=== PATIENT | male | born 1940 | race Caucasian/White ===

== ENCOUNTER 2024-02-01 06:17 | Day surgery (SDC) | payer MEDICARE, SELFPAY ==
[2024-01-17 09:06] VITALS: BMI 25.6
[2024-02-01] VITALS (9 sets, daily range): BP systolic 107–136; BP diastolic 54–77; PULSE 72–86; RESP 12–18; TEMP 36.1–36.6; O2SAT 93–98; BMI 25.4
--- NOTE | 2024-02-01 06:00 | DI.RAD.S_ITS ---
PROCEDURE: XR KNEE RT 1TO2V INDICATIONS: TOTAL RIGHT KNEE TECHNIQUE: 2 view(s) of the knee acquired. COMPARISON: None. FINDINGS: Bones: Patient is status post knee joint arthroplasty. Hardware components are in expected positions. Visualized bony structures are intact. Soft tissues: Overlying postoperative changes are noted. IMPRESSION: Expected postoperative appearance of the knee arthroplasty. Dictated by: Sav Jaimes M.D. on 02/01/2024 at 15:15 Approved by: Sav Jaimes M.D. on 02/01/2024 at 15:20
[2024-02-01] MEDS: LACTATED RINGERS 1,000 ML 42 ML IV ×2 (06:58→09:56)
[2024-02-01] MEDS: ACETAMINOPHEN 325 MG TABLET 975 MG PO (06:58)
[2024-02-01] MEDS: MELOXICAM 7.5 MG TABLET 15 MG PO (06:59)
[2024-02-01] MEDS: lamoTRIgine 100 MG TABLET 350 MG PO ×2 (06:59→20:49)
--- NOTE | 2024-02-01 07:58 | PM.PREOP ---
Pre-operative Note Interval Note History & Physical reviewed/Exam performed by Physician: Yes Changes to H&P: No
[2024-02-01] MEDS: CEFAZOLIN 2 GM/100 ML PREMIX 100 ML IV ×2 (08:00→18:49)
[2024-02-01] MEDS: TRANEXAMIC ACID 1,000 MG VIAL 2000 MG INJ ×2 (08:10→10:09)
--- NOTE | 2024-02-01 08:40 | SUR.OPER ---
Supine on padded OR bed. Pillow under head, arms secured on padded armboards <90 degree abduction. Safety belt across torso. Non-operative leg secured with tape over blanket over lower leg. Operative leg secured in Tomasz positioner. Foam padded brace at thigh of operative leg.
[2024-02-01] MEDS: ROPIVACAINE/EPI/CLONIDINE/KET 50 ML SYRINGE INJ (08:47)
[2024-02-01] MEDS: CEFAZOLIN VIAL 2 GM in SODIUM CHLORIDE 0.9% 100 ML IV (10:20)
--- NOTE | 2024-02-01 11:20 | P.OP_ITS ---
Operative Date/Time/Diagnoses Date of procedure: 02/01/24 Pre-op diagnosis: Right knee osteoarthritis Post-op diagnosis: same Procedure & Clinicians Procedure: Cemented right total knee arthroplasty Same procedure as scheduled: Yes Surgeon: Meek Witt Conference Translator: Holly Jj Anesthesia Type: Spinal, Sedation, Peripheral nerve block and Local Operative Notes Estimated Blood Loss (mL): 200 Tourniquet time (min): 63 Procedure in detail: Right Gap-Balanced Chris Persona Medial-Congruent Primary Total Knee Arthroplasty Implants: * Size 12 Cruciate Retaining Femoral Component * Size H Tibial Component with 14 mm x 30 mm stem extension * Size 10 Medial Congruent Polyethylene Insert * Unresurfaced Patella Procedure Summary: This 83-year-old male patient had a valgus knee which balanced in extension without the need for a posterolateral release. His bone quality was very poor with significant osteoporosis throughout all bony structures. Because of his significant osteoporosis I used a stem extension on the tibial side. He lacked approximately 5? of terminal extension at the beginning of the procedure so I used a +2 cut on the femur. At the conclusion of the procedure balanced was appropriate in both flexion and extension with full extension passively and the ability to flex the knee far enough for the heel impact the buttock. Today's surgery was significantly extended because of implant availability. After having made all of the saw cuts for the patient's total knee arthroplasty I was informed that there was no size 12 femoral component at our hospital. I was not aware of this until I was ready to cement the components in place. There was a size 12 femur at a nearby hospital and it was transported to our hospital all those this resulted in a significant lengthening of the duration of the surgery. When this occurred I brought down the tourniquet temporarily, soaked the wound in a dilute mixture of Betadine and peroxide, and identified any bleeding vessels in the arthrotomy in order to limit blood loss. I also reduced his Ancef prior to wound closure given the increased duration of the procedure. Procedure in Detail: This patient was seen preoperatively and evaluated for knee pain which was refractory to numerous nonoperative treatment modalities. Their pain correlated with radiographic changes demonstrating significant degeneration in the knee joint. The risks and benefits of continued nonoperative management versus operative management were discussed at length and all of the patient?s questions were answered. Additional educational materials providing further details beyond our discussion in clinic were provided via a publicly available patient education video which included the incidence of medical complications associated with total knee arthroplasty, reasons for revision following total knee arthroplasty, and patient satisfaction rates following total knee arthroplasty. That video can be accessed at [email or web address] . With this understanding of the risks inherent to the procedure, the patient elected to move forward with operative management. Following preoperative optimization, the patient was scheduled for surgery. The patient was met in the preoperative holding area the day of the procedure and all questions were answered. The patient?s nares were swabbed with betadine in order to decolonize them from MRSA. Informed consent was signed and the right limb was marked with indelible ink.? The patient was brought back to the operating room where anesthesia was induced. The patient was transferred to the operating table and all bony prominences were padded. The operative site was prepped and draped in the usual sterile fashion. A second prep stick was utilized following drape placement. The incision was marked corresponding to the medial aspect of the tibial tubercle and the patella. Ioban was wrapped circumferentially around the knee. Prior to incision, tranexamic acid and cefazolin were administered. Templating images were displayed. A timeout procedure was performed verifying the patient?s identity, medical comorbidities, allergies, relevant medications, anesthesia type and the surgical plan. All present were in agreement. The assistance of a physician library services assistant was required for positioning, room setup, soft tissue retraction and wound closure. Without this assistance, the procedure would have been significantly more challenging and time consuming.?? The tourniquet was inflated prior to incision. I made an anterior incision over the knee, dissected through the subcutaneous tissues and identified the lateral border of the VMO. Medial and lateral soft tissue flaps were developed. A medial parapatellar arthrotomy was performed ensuring that adequate capsular tissue would remain for closure at the conclusion of the procedure. The hip was brought into extension and the medial soft tissues were released off the joint line of the tibia. Tissue overlying the distal anterior femur was released to allow for later assessment for anterior notching but left in place. A portion of the retropatellar fat pad was excised while protecting the patellar tendon. The patella was everted. The patella was not resurfaced. Osteophytes were excised and a lateral facetectomy was performed. The patella was released from its everted position.?? I flexed the knee to 90 degrees and placed retractors to allow access to the notch. An opening reamer was used to gain access to the femoral canal and an intramedullary claudia was introduced into the canal. Diaphyseal fit was obtained in order to allow a distal femoral resection at 5 degrees relative to the anatomic axis, thereby aiming to achieve mechanical alignment of the eventual implant. A +2 resection was planned and assessed using an paola wing. I then made the cut using a sagittal saw. This provided additional access to the femoral notch. The ACL and PCL were excised. Retractors were placed on the lateral and medial tibia. I hyperflexed the knee while externally rotating it to sublux the tibia anteriorly. I placed a PCL retractor posteriorly and used this to provide additional anterior subluxation. The remainder of the PCL root was released. An intramedullary reamer was used in the ACL footprint to provide access to the tibial canal. An extramedullary guide was positioned to allow a resection perpendicular to the anatomic and mechanical axes of the tibia, thereby aiming to achieve mechanical alignment of the eventual implant. A +4 resection off the medial tibia was planned because there was so much bone loss on the lateral side and the tibial cutting jig was pinned in place. I evaluated the cut depth, varus-valgus alignment and slope of the planned tibial resection and deemed them satisfactory. I cut the tibia with a sagittal saw while using retractors to protect the MCL, patellar tendon, and posterolateral structures.? The knee was repositioned in extension and the Fuzion soft tissue balancing gauge was introduced. This demonstrated that there was equal tension in the medial and lateral compartments of the knee with the knee in full extension and no additional soft tissue releases were necessary. When 60 pounds of force was applied to the Fuzion device, the extension gap opened to 10 mm. I moved the knee into 90 degrees of flexion, and the Fuzion device was recalibrated by removing a 9 mm cruz to allow assessment of the flexion gap. The Fuzion was placed perpendicular to the resected surface of the tibia and the resected surface of the distal femur. Sixty pounds of traction was applied to match the tension of the extension gap. This externally rotated the femur to 7 degrees. Pins were placed in the 10 mm holes. The measured resection guide was placed over the pins to allow sizing. Appropriate sizing was determined and a 4-in-1 block was placed. This was double checked using the Fuzion device to ensure that it would open to an equal distance as the extension gap when the same amount of force was applied. The Fuzion block was also used to assess flexion gap symmetry. An paola wing was used to ensure there would be no anterior notching. Retractors were placed to protect the soft tissues during resection. Captured cuts were performed with a sagittal saw for the anterior and posterior femur as well as the corresponding chamfers.? Trial components were placed and the construct was assessed. Range of motion was assessed by ensuring the knee could achieve full extension and assessing maximum passive knee flexion by elevating the femur and allowing the heel to passively fall towards the buttock. Gap symmetry was assessed by stressing the medial and lateral compartments in both extension and flexion. Laxity was assessed in both extension and flexion and the polyethylene trial was adjusted with shims as necessary. Patellar tracking was assessed with knee flexion. Once satisfied with the construct, I moved forward with implant insertion. Lug holes were drilled in the femur and the tibia was prepped ensuring appropriate sizing and rotation relative to the tibial tubercle.?? The bony ends were irrigated and cement was prepared. Portions of the anterior chamfer cut were utilized as cement restrictors in the femur and tibia where intramedullar rods had been utilized. Cement was placed on the entirety of the undersurface of both the tibial and femoral components. Cement was placed onto the dry tibia and pressurized into the cancellous bone. I impacted the tibial component into place. Cement was removed. The tibia was reduced underneath the femur and placed cement onto the dry surface of the resected femur. I placed the femoral component as well as the intended polyethylene trial. Cement was removed from around the femur. I brought the knee into extension and manually pressurized the construct by pushing on the heel while the cement dried. The kn ee was bathed in a dilute mixture of betadine and peroxide. A mixture of Ropivacaine, Epinephrine, Clonidine and Toradol was infiltrated throughout the soft tissues into structures including the VMO, patellar tendon, quadriceps tendon, MCL and femoral periosteum. A low adductor canal block was also performed using this mixture unless one had been placed preoperatively by anesthesia. The knee was copiously irrigated with pulse lavage. Once cement had been allowed to dry the knee was again trialed. Range of motion was assessed by ensuring the knee could achieve full extension and assessing maximum passive knee flexion by elevating the femur and allowing the heel to passively fall towards the buttock. Gap symmetry was assessed by stressing the medial and lateral compartments in both extension and flexion. Laxity was assessed in both extension and flexion and the polyethylene trial was adjusted with shims as necessary. Patellar tracking was assessed with knee flexion. The tourniquet was let down and the polyethylene trial was removed. I inspected the knee inspected for excess cement and any residual bleeding. Once hemostasis was achieved I inserted the final polyethylene and ensured appropriate engagement of the dovetail locking mechanism.?? The arthrotomy was closed with absorbable interrupted suture ensuring that this extended to the top of the arthrotomy. This was backed up with running barbed suture throughout the arthrotomy. The skin was closed with 2-0 and 3-0 sutures. Surgical glue was applied and a soft dressing was placed.?The sponge, instrument and needle counts were reported as being correct at the end of the case.??No obvious complications occurred. The patient was transferred from the operating table back to a stretcher. The patient emerged from anesthesia without difficulty and was taken to the PACU in a stable condition.? Plan for aftercare: * Weightbearing as tolerated * Aspirin 81 twice per day for DVT prophylaxis * Multimodal pain regimen with no IV opioids ordered * Patient has significant mobility deficits because of a prior thalamic stroke resulting in balanced deficits, vertigo, polio which he recovered from in childhood with some residual weakness, a prior left total knee arthroplasty which was complicated by a patella fracture with some extensor mechanism dysfunction residually, and shoulder strength deficits which make it challenging for him to use a walker. Additionally his has significant back issues which makes it hard for her to support him while ambulating. Because of this they are hoping to be able to move in the direction of discharge to a rehab facility. In the past they have gone to [facility] in [place] and would like to return there if that is logistically possible * Obstructive sleep apnea will use CPAP during admission * Urinary retention which has been exacerbated by anesthetics and opioids in the past. We will restart his dutasteride and tamsulosin immediately in the PACU today and maintain those medications throughout his admission * Follow up at [facility] in 2 weeks * Detailed postoperative instructions available at [email or web address]
[2024-02-01] MEDS: LACTATED RINGERS 1,000 ML 100 ML IV (12:04)
[2024-02-01] MEDS: IBUPROFEN 600 MG TABLET PO ×3 (12:04→22:22)
[2024-02-01] MEDS: ACETAMINOPHEN 325 MG TABLET 650 MG PO ×3 (12:04→22:23)
--- NOTE | 2024-02-01 14:40 | PT.IIE ---
Current Diagnoses Unilateral primary osteoarthritis, right knee (02/01/24) Surgery Performed Operation Date: 02/01/24 07:45 Actual Procedures p Total Knee Arthroplasty(Right) - Meek Witt MD Surgical History (Last Reviewed 02/01/24 @ 06:48 by Debora Marcos, RN) History of total left knee replacement (01/2023) Medical History (Last Reviewed 02/01/24 @ 06:48 by Debora Marcos, RN) Aortic stenosis BPH (benign prostatic hyperplasia) CVA (cerebral vascular accident) (08/19/18) Epilepsy Hearing deficit HTN (hypertension) IBS (irritable bowel syndrome) CROW on CPAP Osteoarthritis PFO (patent foramen ovale) Pre-diabetes Psoriasis RLS (restless legs syndrome) Skin cancer Small bowel obstruction Physical Therapy Inpatient Evaluation/Re-Eval M1 PT/OT-IP Prior Functional Status Start: 02/01/24 16:14 Freq: NEEDED Status: Active Protocol: Document 02/01/24 14:40 AB (Rec: 02/01/24 16:30 AB [id number]) Medical Review Prior Functional Status Medical History Reviewed Yes Communication able to make needs known Mobility and Gait pt stated that he was modified independent with all mobilities and ambulation using a SPC Prior Functional Level (Other details) pt and spouse stated that he had a h/o L TKA but with patellar fx last may 2024 . pt and spouse plans on pt to go to a rehab Social History Household Members spouse Living Arrangements House Number of Floors (Floors) One Floor Number of Stairs To Enter/Railing? ramp to enter Home Environment Standard Height Toilet,Walk in Shower,Built-In Shower Seat Home Equipment Front Wheel Walker,Straight Cane,Raised Toilet Seat Without Armrests,Shower Seat with Backrest,Hand Held Shower ,Grab Bars Near Toilet,Grab Bars In Shower Additional Social History Comment pt has a toilet safety frame pt's spouse stated that she has back issues with radicular pain from assisting pt before and will be limited to the assistance she is going to be able to provide M2 PT-IP Current Condition Start: 02/01/24 16:14 Freq: NEEDED Status: Active Protocol: Document 02/01/24 14:40 AB (Rec: 02/01/24 16:30 AB [id number]) Physical Therapy Current Condition Current Condition Evaluation Date 02/01/24 Treatment Diagnosis s/p R TKA; difficulty in walking Onset Date 02/01/24 M3 PT-IP Subjective Start: 02/01/24 16:14 Freq: NEEDED Status: Active Protocol: Document 02/01/24 14:40 AB (Rec: 02/01/24 16:30 AB [id number]) Subjective Physical Therapy Visit Type Type Initial Evaluation Visit Start Time 14:40 Visit Stop Time 15:45 Number of LOAN CLERK Visits 0 Physical Therapy Visit Comments Patient Comments agreeable to do PT Therapy Pain Assessment Pain When Pain Assessed At Rest Pain Present Pain Present Pain Reported Location Right Knee Intensity 5 Scale Used Numeric (0 - 10) Pain Behaviors Guarding Pain Management Techniques Apply Cold,Distraction, Modification of Treatment,Re- positioning,Timing of Activity with Medications M4 PT-IP Mobility and Gait Start: 02/01/24 16:14 Freq: NEEDED Status: Active Protocol: Document 02/01/24 14:40 AB (Rec: 02/01/24 16:30 AB [id number]) PT-Bed Mobility Assessment Supine to Sit Supine to Sit Standby Assistance PT-Transfer Assessment Sit to and From Stand Sit to and from Stand Maximum Assistance,1 Person Assistance,Use of Upper Extremities Equipment Transfer Assistive Device Gait Belt,Front Wheeled Walker Orthotic/Prosthetic Devices or Brace: No Comments Mobility Comments pt supine in bed. spouse in room. pt agreed to do PT. obtained pLOF and home set up from pt and spouse. BP in supine: 122/63. completed supine to sit SBA. able to sit on EOB SBA. c/o slight dizziness. BP: 123/68. completed sit to stand max A and max cues. ambulated in room ~ 35 ft using FWW min A and cues. pt can be impulsive. cued to slow down and for LE quads activation. pt wants to go back in bed. sat on EOB and completed sit to supinen SBA. positioned pt in bed. BP: 126/68. post -op folder provided and reviewed with pt. educated pt on HEP. call light and table placed within reach. spouse expressed concerns about pt going home. spouse stated that pt was only able to stand ~ 10-15 sec before and that she wants pt to be able to walk farther before he can go home since she injured herself while assisting pt before. Gait Assessment Gait Gait Assistance Required: Minimum Assistance,1 Person Assist Distance (Feet) 30 Assistive Devices Assistive Device Gait Belt,Front Wheeled Walker Orthotic/Prosthetic Devices or Brace: No Gait Deviations General Gait Pattern Decreased Stride Length, Decreased Feet Clearance, Flexed Trunk Factors Limiting Gait Function Factors Limiting Gait Function Decreased Activity Tolerance, Decreased Sensation,Difficulty Following Directions,Limited Range of Motion,Pain,Poor Balance,Poor Safety Awareness PT-Balance Assessment Sitting Balance and Reactions Static Sitting Balance Ability Normal Dynamic Sitting Balance Ability Good Standing Balance and Reactions Static Standing Balance Ability Fair Dynamic Standing Balance Ability Fair Device Used FWW M5 PT-IP Objective Assessments Start: 02/01/24 16:14 Freq: NEEDED Status: Active Protocol: Document 02/01/24 14:40 AB (Rec: 02/01/24 16:30 AB [id number]) Orientation Orientation/Cognition Level of Alertness Alert Orientation Name,Place,Situation Language Function Ability Hard of Hearing Safety Awareness Decreased Safety Awareness Memory Description No Deficits Noted Gross Range of Motion Lower Extremity ROM Assessment Right Impaired Impairments R knee flexion: ~ 70 deg R knee extension: ~ 10 deg less to 0 Strength Lower Extremity Strength Assessment Right Impaired Hip 4-/5 Knee 3+/5 Sensation Assessment Sensation Sensation Description Numbness Comments Sensation Comments 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 Muscle Tone Muscle Tone WNL Yes M6 PT-IP Treatment Start: 02/01/24 16:14 Freq: NEEDED Status: Active Protocol: Document 02/01/24 14:40 AB (Rec: 02/01/24 16:30 AB [id number]) Physical Therapy Treatment Exercises Exercises Heel Slides Education Education Provided Precautions,Weight Bearing Status,Post-Op Packet,Safety M7 PT-IP Assessment and Plan Start: 02/01/24 16:14 Freq: NEEDED Status: Active Protocol: Document 02/01/24 14:40 AB (Rec: 02/01/24 16:30 AB [id number]) PT Summary Assessment and Plan Potential Rehabilitation Potential Fair Status of Condition at Evaluation Stable Summary Impairments Pain,ROM,Strength,Balance, Coordination,Sensation,Tone, Cognition,Bed Mobility, Transfers,Gait,Activity Tolerance Assessment Summary pt is arianna 83 y/o M s/p R TKA POD 0. pt is WBAT on RLE. pt with h/o L TKA with patellar fx, thalamic stroke, BPPV affecting current mobility assistance. pt lives with spouse but spouse will be limited to the assistance she can provide due to her medical issues. pt plans to go to acute rehab to improve overall strength and function. will continue to assess. Goals Bed Mobility Goal Independent Transfer Goal Independent,Front Wheeled Walker Gait Goal Independent,Front Wheel Walker Gait Distance 200 Other Goals improve transfers, ambulation using LRAD 300 ft mod I Days to Meet Goals 5 Frequency of Treatment Frequency Of Treatment Twice a Day Treatment Plan Physical Therapy Treatment Plan Bed Mobility Training,Transfer Training,Gait Training, Therapeutic Exercise,Balance Retraining,Post Op Education, Discharge Planning,Hot or Cold Pack,Neuromuscular Re-ed, Coordination Retraining,Manual Therapy Weight Bearing Status Weight Bearing Status Weight Bear as Tolerated Allowed Weight Bearing Amount (enter % RLE WBAT or #) (%) Recommendations To Nursing Amount of Assist Needed 1 Person Assist Discharge Recommendations PT Discharge Recommendations Home with Assistance,Home Health,Acute Rehab Transportation Needs at Discharge Private Vehicle,Wheelchair/ Cabulance
[2024-02-01] MEDS: OXYCODONE IR 5 MG TABLET PO (15:13)
--- NOTE | 2024-02-01 17:45 | OT.IP.EVAL ---
Current Diagnoses Unilateral primary osteoarthritis, right knee (02/01/24) Surgery Performed Operation Date: 02/01/24 07:45 Actual Procedures p Total Knee Arthroplasty(Right) - Meek Witt MD Past Medical History (Last Reviewed 02/01/24 @ 06:48 by Debora Marcos, RN) Aortic stenosis BPH (benign prostatic hyperplasia) CVA (cerebral vascular accident) (08/19/18) Epilepsy Hearing deficit HTN (hypertension) IBS (irritable bowel syndrome) CROW on CPAP Osteoarthritis PFO (patent foramen ovale) Pre-diabetes Psoriasis RLS (restless legs syndrome) Skin cancer Small bowel obstruction Surgical History (Last Reviewed 02/01/24 @ 06:48 by Debora Marcos, STEPHANIE) 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 Prior Functional Level (Other details) pt and spouse stated that he had a h/o L TKA but with patellar fx last January 2023, per medical chart pt and spouse plans on pt to go to a rehab Social History Household Members spouse Living Arrangements House Number of Floors (Floors) One Floor Number of Stairs To Enter/Railing? ramp to enter Home Environment Standard Height Toilet,Walk in Shower,Built-In Shower Seat Home Equipment Front Wheel Walker,Straight Cane,Raised Toilet Seat Without Armrests,Shower Seat with Backrest,Hand Held Shower ,Long Handled Shoe Horn, Cleaning And Maintenance Worker,Sock Aid,Grab Bars Near Toilet,Grab Bars In Shower Additional Social History Comment pt has a toilet safety frame pt's spouse stated that she has back issues with radicular pain from assisting pt before and will be limited to the assistance she is going to be able to provide M2 OT-IP Current Condition Start: 02/01/24 17:12 Freq: Status: Active Protocol: Document 02/01/24 17:14 [facility] (Rec: 02/01/24 17:41 [facility] [id number]) Occupational Therapy Current Condition Current Condition Evaluation Date 02/01/24 Treatment Diagnosis S/P R TKA Diagnosis Onset Date 02/01/24 M3 OT- IP Subjective and Pain Start: 02/01/24 17:12 Freq: Status: Active Protocol: Document 02/01/24 17:14 [facility] (Rec: 02/01/24 17:41 [facility] [id number]) OT- Subjective Occupational Therapy Visit Type Type Initial Evaluation Visit Start Time 16:50 Visit Stop Time 17:24 Occupational Therapy Visit Comments Patient Comments Pt agreed to get up for OT eval. Patient/Caregiver Goals To go to acute rehab. OT Pain Assessment Pain When Pain Assessed During Mobility Pain Present Pain Present Pain Reported M4 OT- IP ADL's Start: 02/01/24 17:12 Freq: Status: Active Protocol: Document 02/01/24 17:14 [facility] (Rec: 02/01/24 17:41 [facility] [id number]) OT [id number] Comments OT Self-Feeding Comments NOt at meal time. OT ADL-Grooming General Evaluation Grooming Ability Standby Assistance Comments OT Grooming Comments Set-up while seated. OT ADL-Oral Care General Eval Oral Care Ability Independent Comments Oral Care Comments While seated. OT ADL-Dressing General Eval Lower Body Dressing Ability Maximum Assistance Areas Needing Assistance Socks OT ADL-Toileting Comments OT Toileting Comments Pt not needing to go. Pt states the toilet is 20ft away from the bed. OT ADL-Bathing Comments OT Bathing Comments Not performed. M5 OT- IP IADL's Start: 02/01/24 17:12 Freq: Status: Active Protocol: Document 02/01/24 17:14 [facility] (Rec: 02/01/24 17:41 [facility] [id number]) OT-Instrumental Activities of Daily Living Home Safety Awareness Awareness of Need for Assistance at Home Good Awareness Home Safety Comments Pt a little forgetful and groogy and his Life Partner to assist as needed. Medication Management Medication Management Comments Pt states takes his own. Money Management Money Management Comments Pt states does his own bills. Meal Preparation Meal Preparation Caregiver Provides Assist Wage Analyst Wage Analyst Caregiver Provides Assist M6 OT- IP Functional Cognition Start: 02/01/24 17:12 Freq: Status: Active Protocol: Document 02/01/24 17:14 [facility] (Rec: 02/01/24 17:41 [facility] [id number]) Cognitive Factors Limiting Selfcare Function Cognitive Ability Level of Alertness Alert Patient Orientation Name,Age,Birthday,Month,Date, Year,Day of Week,Place, Situation Attention Span Ability Capable of Focused Attention, Capable of Sustained Attention Ability to Follow Commands Able to Follow One Step Commands Safety Awareness Underestimates Need for Assistance Cognitive Comments Cognitive Assessment Comments Pt a bit groggy and starting to feel the pain more at this time. Pt needing vs for safety of FWW and to use his hands to push up from the bed. OT- Vision and Hearing OT- Hearing Assessment OT- Hearing Assessment Hearing Impaired OT- Vision Assessment Visual Acuity Glasses All The Time Visual Attentiveness WFL Occular Pursuits WFL Visual Convergence WFL M7 OT- IP Mobility and Balance Start: 02/01/24 17:12 Freq: Status: Active Protocol: Document 02/01/24 17:14 [facility] (Rec: 02/01/24 17:41 [facility] [id number]) OT- Bed Mobility Assessment Supine to Sit Supine to Sit Assist Standby Assistance Sit to Supine Sit to Supine Assist Standby Assistance OT-Transfer Assessment Sit to and From Stand Sit to and from Stand Maximum Assistance,Total Assistance,1 Person Assistance Comments Mobility Comments Pt trying to stand and use of momentum and not able to stand all the way up at this time and leaning backwards. OT- Balance Assessment Sitting Balance and Reactions Static Sitting Balance Ability Good Dynamic Sitting Balance Ability Fair Standing Balance and Reactions Static Standing Balance Ability Poor M8 OT- IP Objective Assessments Start: 02/01/24 17:12 Freq: Status: Active Protocol: Document 02/01/24 17:14 [facility] (Rec: 02/01/24 17:41 [facility] [id number]) OT Gross Range of Motion Upper Extremity Range of Motion Assessment Right Impaired OT Strength Upper Extremity Strength Assessment Right Impaired Comments Strength Comments RUE rotator cuff issues and not able to raise his right arm up. LUE grossly WFL for age and lifestyle. M9 OT- IP Assessment and Plan Start: 02/01/24 17:12 Freq: Status: Active Protocol: Document 02/01/24 17:14 [facility] (Rec: 02/01/24 17:41 [facility] [id number]) OT Summary Assessment and Plan Potential Rehabilitation Potential Good Analytic Complexity at Evaluation Moderate Summary OT Impairments Pain,Range of Motion,Strength, Balance,Functional Mobility, Self-Feeding,Grooming,Dressing ,Toileting,Bathing,Toilet Transfers,Shower Transfers, Activity Tolerance Progress Towards Goals Slow Progress due to Pain Assessment Summary Pt MOD complexity and main barriers are pain and not able to stand completely up at this time with MAX AX1. Pt prior had left TKA in 01/28 per medical chart and was able to so to acute rehab when great success. Pt and his significant other who has spinal stenosis and unable to do any lifting for the pt is hopeful pt to go to acute rehab prior to going home. Pt will benefit from acute rehab. 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 Goals Self-Feeding Goal Independent Grooming Goal Independent Dressing Goal Independent,Long Handled Shoe Horn,Cleaning And Maintenance Worker,Sock Aid Toileting Goal Independent Bathing Goal Standby Assistance Toilet Transfer Goal Independent Shower Transfer Goal Standby Assistance Days to Meet Goals 20 Frequency of Treatment Other frequency 5x/week Treatment Plan OT Treatment Plan ADL Training,Functional Mobility,Patient/Family Education,Discharge Planning Discharge Recommendations OT Discharge Recommendations SNF vs Acute Rehab Transportation Needs at Discharge Wheelchair/Cabulance
[2024-02-01] MEDS: TAMSULOSIN 0.4 MG CAPSULE PO (19:37)
[2024-02-01] MEDS: ASPIRIN EC 81 MG TABLET PO (20:49)
[2024-02-01] MEDS: DOCUSATE 100 MG CAPSULE PO (20:49)
[2024-02-02] MEDS: OXYCODONE IR 5 MG TABLET PO ×3 (00:02→12:42)
[2024-02-02] MEDS: CEFAZOLIN 2 GM/100 ML PREMIX 100 ML IV (02:00)
[2024-02-02] MEDS: SODIUM CHLORIDE 0.9% FLUSH 10 ML IV ×2 (02:54→08:32)
[2024-02-02 05:32] LABS: Hematocrit 26.6 % (41-53); Hemoglobin 9.2 g/dL (13.5-17.5)
[2024-02-02] MEDS: ACETAMINOPHEN 325 MG TABLET 650 MG PO ×2 (06:09→11:45)
[2024-02-02] MEDS: IBUPROFEN 600 MG TABLET PO ×2 (06:10→11:46)
[2024-02-02 08:18] VITALS: BP 124/60; PULSE 74; RESP 16; TEMP 36.2; O2SAT 96
[2024-02-02] MEDS: polyethylene glycoL 3350 17 GM POWD.PACK PO (08:29)
[2024-02-02] MEDS: ASPIRIN EC 81 MG TABLET PO (08:29)
[2024-02-02] MEDS: DOCUSATE 100 MG CAPSULE PO (08:29)
--- NOTE | 2024-02-02 08:29 | PM.PNPO.1 ---
Subjective Subjective Interval history: Davi is a pleasant 83 year old male who is POD#1 s/p R TKA by Dr. Witt. Overall patient reports he is doing well. Pain is moderate well-controlled with oral pain medication. He has a history of urinary retention made worse with with opioids and anesthesia, he was re-started on tamsulosin in the PACU. He reports he has no issues urinating since surgery. He is urinated both yesterday and 4 times this morning. He does admit that he had to get up several times to pee during the night which disrupted some of his sleep. He lives at home w/ his who is a physician however due to significant mobility deficits because of a prior thalamic stroke resulting in balanced deficits, vertigo, polio which he recovered from in childhood with some residual weakness and a prior left total knee arthroplasty which was complicated by a patella fracture with some extensor mechanism dysfunction residually, and shoulder strength deficits which make it challenging for him to use a walker they would like to d/c to SNF where patient can gain some of his strength back prior to d/c to home. He has not seen PT at today but has been able to walk around his room with a walker and to and from the bathroom. He has outpatient PT scheduled in [place] in 2-3 weeks. He has a walker at home. Denies fever, chills, chest pain, SOB, nausea, vomiting. Exam Vital Signs (past 8 hours): - 02/02/24 08:18 Temperature 97.2 F L Pulse Rate 74 Respiratory Rate 16 Blood Pressure 124/60 Pulse Oximetry 96 Oxygen Delivery Method Room Air Oxygen Flow Rate 0 Narrative Exam Narrative: Patient lying comfortably in bed during our interview today. No acute distress. AOx3. Grossly normal alignment of the RLE. R knee AROM 0-40. 5/5 strength with DF, PF, EHL bilaterally. Gross sensation intact throughout bilateral lower extremities. Calves soft and non-tender bilaterally. SCDs are on and functioning. Brisk capillary refill, pulses intact. Post-surgical dressing/Aquacel dressing clean, dry and intact over the right knee without drainainge. 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 Patient has significant mobility deficits because of a prior thalamic stroke resulting in balanced deficits, vertigo, polio which he recovered from in childhood with some residual weakness, a prior left total knee arthroplasty which was complicated by a patella fracture with some extensor mechanism dysfunction residually, and shoulder strength deficits which make it challenging for him to use a walker. 2) Continue multimodal pain management with ice to the knee for additional pain control. Would like to have patient given his Tamsulosin in the late afternoon/ early evenings but not right before bed to help alleviate some of the frequent urination throughout the night. 3) ASA b.i.d. for DVT prophylaxis. 4) Start outpatient physical therapy to work on range of motion and mobility. 5) Keep dressing intact, clean, dry until 2 week postop appointment. No soaking the incision site in pools or tubs. No topical ointments or creams to the incision site. 6) Follow up at [facility] orthopedics in 2 weeks for a postop appointment and wound check. All patient and his questions were answered, they demonstrates understanding and are in agreement with the plan. Call our office if any questions or concerns arise. Quality VTE Deep Vein Thrombosis/Pulmonary Embolism Present on Admission: No
[2024-02-02] MEDS: lamoTRIgine 100 MG TABLET 350 MG PO (08:30)
--- NOTE | 2024-02-02 10:41 | PT.IPTN ---
Current Diagnoses Unilateral primary osteoarthritis, right knee (02/01/24) Surgery Performed Operation Date: 02/01/24 07:45 Actual Procedures p Total Knee Arthroplasty(Right) - Meek Witt MD Physical Therapy Treatment Note M2 PT-IP Current Condition Start: 02/01/24 16:14 Freq: NEEDED Status: Active Protocol: Document 02/01/24 14:40 [facility] (Rec: 02/01/24 16:30 AB [id number]) Physical Therapy Current Condition Current Condition Evaluation Date 02/01/24 Treatment Diagnosis s/p R TKA; difficulty in walking Onset Date 02/01/24 M3 PT-IP Subjective Start: 02/01/24 16:14 Freq: NEEDED Status: Active Protocol: Document 02/02/24 11:08 TS (Rec: 02/02/24 11:23 TS [id number]) Subjective Physical Therapy Visit Type Type Treatment Note Visit Start Time 10:41 Visit Stop Time 11:05 Number of BATCH DUMPER Visits 1 Physical Therapy Visit Comments Patient Comments Pt found resting in bed, spouse in room. He reports having more pain today and difficulty walking. Pt is hoping for auth to acute rehab . Therapy Pain Assessment Pain When Pain Assessed During Mobility Pain Present Pain Present Pain Reported M4 PT-IP Mobility and Gait Start: 02/01/24 16:14 Freq: NEEDED Status: Active Protocol: Document 02/02/24 11:08 TS (Rec: 02/02/24 11:23 TS [id number]) PT-Bed Mobility Assessment Supine to Sit Supine to Sit Standby Assistance Scooting Scooting to Edge of Bed Standby Assistance PT-Transfer Assessment Sit to and From Stand Sit to and from Stand Contact Guard Assistance, Minimal Assistance,1 Person Assistance,Use of Upper Extremities Equipment Transfer Assistive Device Gait Belt,Front Wheeled Walker Orthotic/Prosthetic Devices or Brace: No Comments Mobility Comments Supine to sit SBA with HOB elevated, pt requires no assist with RLE to EOB. STS from bed CGA with FWW, pt required cues for proper STS technique. He ambulated ~100' SBA with FWW and a step thru gait. He had some no buckling or LOB with ambulation, does report feeling tired. He ambulated back to room. Performed STS from chair x1 Magdalena and x1 CGA, he demonstrates good carryover of STS technique. He requested to use restroom, pt was left on toilet, instructed to call nursing when done. Gait Assessment Gait Gait Assistance Required: Standby Assistance Distance (Feet) 100 Assistive Devices Assistive Device Gait Belt,Front Wheeled Walker Orthotic/Prosthetic Devices or Brace: No Gait Deviations General Gait Pattern Decreased Stride Length, Decreased Feet Clearance, Flexed Trunk Factors Limiting Gait Function Factors Limiting Gait Function Decreased Activity Tolerance, Decreased Sensation,Difficulty Following Directions,Limited Range of Motion,Pain,Poor Balance,Poor Safety Awareness Comments Gait Comments See mobility comments PT-Balance Assessment Sitting Balance and Reactions Static Sitting Balance Ability Good Dynamic Sitting Balance Ability Good Standing Balance and Reactions Static Standing Balance Ability Good Dynamic Standing Balance Ability Fair Device Used FWW M5 PT-IP Objective Assessments Start: 02/01/24 16:14 Freq: NEEDED Status: Active Protocol: Document 02/01/24 14:40 [facility] (Rec: 02/01/24 16:30 AB [id number]) Orientation Orientation/Cognition Level of Alertness Alert Orientation Name,Place,Situation Language Function Ability Hard of Hearing Safety Awareness Decreased Safety Awareness Memory Description No Deficits Noted Gross Range of Motion Lower Extremity ROM Assessment Right Impaired Impairments R knee flexion: ~ 70 deg R knee extension: ~ 10 deg less to 0 Strength Lower Extremity Strength Assessment Right Impaired Hip 4-/5 Knee 3+/5 Sensation Assessment Sensation Sensation Description Numbness Comments Sensation Comments 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 Muscle Tone Muscle Tone WNL Yes M6 PT-IP Treatment Start: 02/01/24 16:14 Freq: NEEDED Status: Active Protocol: Document 02/02/24 11:08 TS (Rec: 02/02/24 11:23 TS [id number]) Physical Therapy Treatment Education Education Provided Safety M7 PT-IP Assessment and Plan Start: 02/01/24 16:14 Freq: NEEDED Status: Active Protocol: Document 02/02/24 11:08 TS (Rec: 02/02/24 11:23 TS [id number]) PT Summary Assessment and Plan Potential Rehabilitation Potential Fair Summary Impairments Pain,ROM,Strength,Balance, Coordination,Sensation,Tone, Cognition,Bed Mobility, Transfers,Gait,Activity Tolerance Assessment Summary Davi is progressing with his mobility. He is SBA for bed mobility with HOB elevated . He is CGA for STS from and requires cues. He performed STS x2 from chair, x1 Magdalena and x1CGA. He progressed his gait to ~100' SBA with FWW. PT is recommending home with assist at this time. Pt plans to go to acute rehab but is still waiting approval. Goals Bed Mobility Goal Independent Transfer Goal Independent,Front Wheeled Walker Gait Goal Independent,Front Wheel Walker Gait Distance 200 Other Goals improve transfers, ambulation using LRAD 300 ft mod I Days to Meet Goals 5 Frequency of Treatment Frequency Of Treatment Twice a Day Treatment Plan Physical Therapy Treatment Plan Bed Mobility Training,Transfer Training,Gait Training, Therapeutic Exercise,Balance Retraining,Post Op Education, Discharge Planning,Hot or Cold Pack,Neuromuscular Re-ed, Coordination Retraining,Manual Therapy Weight Bearing Status Weight Bearing Status Weight Bear as Tolerated Allowed Weight Bearing Amount (enter % RLE WBAT or #) (%) Recommendations To Nursing Amount of Assist Needed 1 Person Assist Discharge Recommendations PT Discharge Recommendations Home with Assistance,Home Health,Acute Rehab Other Discharge Recommendations Pt would like to go to acute rehab to improve overall strength and stability. Transportation Needs at Discharge Private Vehicle
--- NOTE | 2024-02-02 13:08 | CM.DANOTE ---
Patient is an 83 yo male who was admitted SDC status on 02/01/24 for RTKA. Pt has [facility] and [employer] for insurance and his PCP is Gabi Martin. EMR was reviewed. Per ORtho, pt tolerated procedure well and to work more with PT today towards discharge home vs Acute Rehab. Per DIRECTOR GLOBAL MEDICAL AFFAIRS, pt ambulated well in the hallway with FWW and SBA/CGA and recommending home with HH. SW met bedside with pt and Sig Other Solange and explained role and they confirm they live in [place] and mostly independent with ADLs but Sig Other has back issues and not able to provide physical assist. They confirm pt had right total knee last year in January and discharged home but a few months later had a fall with fx knee cap and went to [facility] and therefore they have some fears and worries with discharge home and their preference was [facility] again. SW updated them that [facility] Acute referral was made and currently they are full and do not anticipate any availability for at least 4-5 days and pt likely mobilizing too well to meet criteria. SW explained that pt's current SDC status means they cannot appeal discharge and also no Medicare coverage for SNF. SW explained possible options of HH and pt has used HH last year and they feel this would be helpful and no HH preference after reviewing Choice list and just HH agency that can start the soonest. SW provided PP CG agency list as well and also discussed option of PP SNF. SW encouraged them to reach out to family and they called pt's 2 adult sons who live in [place] as well and agreeable to provide assist at d/c and sons now agreeable to be bedside for PT CG training this afternoon around 1400 prior to d/c. RN getting pt showered prior to PT so that pt will be ready for discharge home this evening. SW contacted [facility] and their PT cannot do start of care for a few days. [place] [facility] [place] [facility] awaiting confirmation on SOC availability. SW called [facility] and they now cover [facility] and next PT SOC is 02/04/24 and SW faxed new referral along with F2F and HH order. SW updated PT and RN. Plan: SW to follow for plan of discharge home tonight via family POV and [facility] and caregiver agency information provided. DIANDRA Moreno Discharge Planning/Care Management CM Discharge Assessment Start: 02/02/24 11:48 Freq: Status: Active Protocol: Document 02/02/24 11:48 BF (Rec: 02/02/24 11:52 BF [id number]) Discharge Planning Assessment Assigned Seamer Operator DIANDRA Watson DPOA/Assigned Designee Name Sig Other Solange Rodriges Contact Information [phone] Advance Directives? Yes Advance Directives on File No History Provided By Patient,Significant Other, Medical Record Has Patient been admitted in last 30 No days? Prior Living Arrangements House Household Members significant other Type of transporation used prior to Drives own vehicle admit Independent with ADL's Yes: mostly Is patient alert and oriented? Yes: mostly Needs Assistance With Meal Prep,Home Chores / Shopping Caregiver for Another No Community Services used prior to Physical Therapy admission: DME Already Rented / Owned FWW / Walker Comment attempting to get BSC Patient/Family Preference Home with Home Health Barriers to Discharge No Comment SDC status, not inpatient or OBS Discharge Plan Home with Home Health Community Services Physical Therapy,Home Health Aid Transportation Arrangement Sig Other and friend to provide assist at d/c Referrals Initiated Home Health If patient plan is home with home health Yes : Has signed face to face form been completed? Medicare Choice List Provided Yes Medicare choice list reviewed on patient,family electronic tablet with SNF/HH Preference Whichever HH agency can start the soonest Whiteboard Updated in Patient Room with Yes name and ext. # of Seamer Operator Review Status In Process Please Provide Date Initial DC 02/02/24 Assessment Was Performed Next Review Type Continued Stay Review Pre-Anesthesia Assessment Start: 01/16/24 13:34 Freq: Status: Complete Protocol: Document 01/17/24 09:06 CAB (Rec: 01/16/24 14:36 CAB [id number]) Pre-Anesthesia Assessment Preferred Name Bill Patient Information Reviewed Via Phone Assessment Assessment Completed With Patient Diagnostic Results BMP/CMP,CBC,EKG Primary Care Provider [place] Comment Clearance form 11/16/23 scanned and in surgery folder Seen Specialist in Last 12 Months Yes Specialist Seen Lining Repairer,Orthopedist, Meter/Relay Craftsman,Other Comment Neurology and Pulmonary visits scanned and in surgery folder Primary Language Luxembourger Hydrator Operator Required No Height 185.42 cm Weight 87.997 kg Body Mass Index (BMI) 25.6 Hearing Ability Hearing Impaired,Use of Hearing Aid Visual Assist Glasses Dentition Type Teeth, Natural Present Barriers to Learning Memory Hx Anesthesia Reactions No: Unable to do a spinal due to stenosis, urinary retention after GA, dyson Hx Family Anesthesia Reaction No Hx Malignant Hyperthermia No Hx Blood Transfusions No Anesthesia Review Requested Yes: Surgeon requested re: Cardiac history Director Of Design No alcohol intake current alcohol intake frequency a few times a month Smoking Status Former smoker how long ago did patient quit smoking Over 50 years ago Substance Use Type marijuana Comment Tincture of marijuana rarely Pain Present Pain Reported Musculoskeletal Symptoms Abnormal Gait,Difficulty Walking,Joint Pain History of Falling (Recent or History of Yes ) Patient is completely paralyzed or No completely immobile Prosthesis or Orthotic Device Cane,Front Wheel Walker Mental Status Oriented to own ability Is patient on oxygen? No Does patient have FERRER/SOB No Hx Sleep Apnea Yes CPAP/BIPAP use prescribed and used routinely Will Bring CPAP/BIPAP DOS Yes Currently Taking a Beta Isa No Can You Climb a Flight of Stairs Without Yes SOB Hx Chest Pain No Hx SOB No Hx Syncope or Dizziness No Anti-Coagulant Therapy Yes: ASA 81mg pt Has a Lining Repairer Yes: Pre-op visit 11/16/[address] Estrada @ [facility] Cardiac Testing No Hx Pacemaker/ICD No Pacemaker Rep Required? No Cardiac Clearance Received Yes Comment Cardiac records scanned and in surgery folder Diet Type At Home Regular Dysphagia No Gastrointestinal Symptoms Constipation Genitourinary Symptoms Change in Urinary Stream Bladder Pattern Frequency Urinary Catheter Present No Hx Urinary Self Catheterization No Diabetes No HgbA1C 5.6 Date 11/20/23 Presence of External or Internal Medical Yes: left knee, CPAP Devices Marital Status Lives With significant other Current Living Arrangements House Number of Floors (Floors) One Floor Support System Child/Children,Significant Other Does the Patient Have Assistance After Yes Surgery Patient Discharge Plan Description Return Home Comment Pt advised overnight length of stay per surgeon Feels Safe in Current Environment Yes Been Physically Hurt or Threatened By a No Person in Current Environment Do you have thoughts of harming yourself None or others? Are you currently considering suicide? No Do you have a plan to hurt yourself or No Plan others? Do You Have Any Spiritual Beliefs That No May Affect Your HC Choices? Do You Have Any Cultural Practices That No May Affect Your HC Choices? Who Can We Speak to About Patient's Care Family, friends Identifying Code for Release of Patient Declines to issue Information Health Care Proxy/Next of Kin Solange (S.O.) Health Care Proxy Emergency Contact Name Xavier (son) Emergency Contact Advance Directives? Yes Advance Directives on File No Power of Mural Artist Yes Power of Mural Artist Name Solange (S.O.) Power of Mural Artist PAC Instructions Bring CPAP/BIPAP,Durable medical equipment,Medications to take/avoid,Nasal antibiotic ,No ETOH/petroleum product on skin DOS,NPO,Pre-surgical wash ,Sensory aids,Sturdy shoes/ comfortable clothes,Do not bring valuables and remove jewelry
--- NOTE | 2024-02-02 14:15 | PT.IPTN ---
Current Diagnoses Unilateral primary osteoarthritis, right knee (02/01/24) Surgery Performed Operation Date: 02/01/24 07:45 Actual Procedures p Total Knee Arthroplasty(Right) - Meek Witt MD Physical Therapy Treatment Note M2 PT-IP Current Condition Start: 02/01/24 16:14 Freq: NEEDED Status: Discharge Protocol: Document 02/01/24 14:40 AB (Rec: 02/01/24 16:30 AB [id number]) Physical Therapy Current Condition Current Condition Evaluation Date 02/01/24 Treatment Diagnosis s/p R TKA; difficulty in walking Onset Date 02/01/24 M3 PT-IP Subjective Start: 02/01/24 16:14 Freq: NEEDED Status: Discharge Protocol: Document 02/02/24 14:15 AB (Rec: 02/02/24 16:31 AB [id number]) Subjective Physical Therapy Visit Type Type Treatment Note Visit Start Time 14:15 Visit Stop Time 15:10 Number of CAMERA STORAGE CLERK Visits 0 Physical Therapy Visit Comments Patient Comments agreeable to do PT Therapy Pain Assessment Pain When Pain Assessed At Rest Pain Present Pain Present Pain Reported Location Right Knee Intensity 6 Scale Used increases to 8/10 with mobility Pain Management Techniques Apply Cold,Distraction, Modification of Treatment,Re- positioning,Timing of Activity with Medications M4 PT-IP Mobility and Gait Start: 02/01/24 16:14 Freq: NEEDED Status: Discharge Protocol: Document 02/02/24 14:15 AB (Rec: 02/02/24 16:31 AB [id number]) PT-Bed Mobility Assessment Supine to Sit Supine to Sit Standby Assistance Sit to Supine Sit to Supine Standby Assistance PT-Transfer Assessment Sit to and From Stand Sit to and from Stand Minimal Assistance,Maximum Assistance,1 Person Assistance ,Use of Upper Extremities Equipment Transfer Assistive Device Gait Belt,Front Wheeled Walker Orthotic/Prosthetic Devices or Brace: No Transfers Transfer Destination Bed,Chair Transfer Technique ambulated Transfer Ability Level of Assist Contact Guard Assistance,1 Person Assistance,Use of Upper Extremities Comments Mobility Comments pt supine in bed. pt's 2 sons and spouse in room with pt. pt completed supine to sit SBA . caregiver training conducted. educated spouse and sons on how to use safety belt and how to assist pt. pt completed sit to stand from EOB requiring max A and cues. PT assisting. instructed pt to sit backdown. pt tends to push heavily on BUE and not use LE to get up. educated pt on sit<>stand techniques. pt completed sit to stand again with PT providing one step commands and completed with CGA. pt repeated again without cues from pt and was able to complete. instructed spouse to provide pt with CGA and to instruct as needed. pt completed sit<>stand with spouse assisting and unable to stand on first attempt. informed spouse to cue pt due to pt needing instructions. pt completed again and was able to complete CGA. pt ambulated in room using FWW ~ 20 ft CGA. pt sat back on EOB. pt c/o increase R knee pain and rested. pt agreed to get up again. pt's son assisted pt and completed and pt ambulated in room ~ 30 ft. pt sat on the chair and rested. pt completed sit to stand from the chair CGA to min A and cued for techniques. pt sat back on the chair. pt's other son assist him this time and was able to complete and pt ambulated back to the bed using fWW CGA. pt requested lay down in bed. completed sit to supine SBA. positioned pt in bed. call light and table placed within reach. pt, spouse and sons without further concerns. sons stated that they can work it out where in one of them will be with pt and to assist at home. Gait Assessment Gait Gait Assistance Required: Contact Guard Assist Distance (Feet) 30 Able to Maintain Weight Bearing Status Yes During Gait Assistive Devices Assistive Device Gait Belt,Front Wheeled Walker Orthotic/Prosthetic Devices or Brace: No Gait Deviations General Gait Pattern Decreased Stride Length, Decreased Feet Clearance,Step- to Gait Factors Limiting Gait Function Factors Limiting Gait Function Decreased Activity Tolerance, Decreased Strength,Difficulty Following Directions,Limited Range of Motion,Pain,Poor Balance,Poor Safety Awareness M5 PT-IP Objective Assessments Start: 02/01/24 16:14 Freq: NEEDED Status: Discharge Protocol: Document 02/01/24 14:40 AB (Rec: 02/01/24 16:30 AB [id number]) Orientation Orientation/Cognition Level of Alertness Alert Orientation Name,Place,Situation Language Function Ability Hard of Hearing Safety Awareness Decreased Safety Awareness Memory Description No Deficits Noted Gross Range of Motion Lower Extremity ROM Assessment Right Impaired Impairments R knee flexion: ~ 70 deg R knee extension: ~ 10 deg less to 0 Strength Lower Extremity Strength Assessment Right Impaired Hip 4-/5 Knee 3+/5 Sensation Assessment Sensation Sensation Description Numbness Comments Sensation Comments 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 Muscle Tone Muscle Tone WNL Yes M6 PT-IP Treatment Start: 02/01/24 16:14 Freq: NEEDED Status: Discharge Protocol: Document 02/02/24 14:15 AB (Rec: 02/02/24 16:31 AB [id number]) Physical Therapy Treatment Exercises Exercises Heel Slides Education Education Provided Weight Bearing Status,Safety M7 PT-IP Assessment and Plan Start: 02/01/24 16:14 Freq: NEEDED Status: Discharge Protocol: Document 02/02/24 14:15 AB (Rec: 02/02/24 16:31 AB [id number]) PT Summary Assessment and Plan Potential Rehabilitation Potential Fair Summary Impairments Pain,ROM,Strength,Balance, Coordination,Sensation,Tone, Cognition,Bed Mobility, Transfers,Gait,Activity Tolerance Progress Towards Goals Slow Progress due to Pain Assessment Summary pt progressing with mobility using FWW needing CGA with ambulation. pt inconsistent with sit<>stand assistance and needed max cues to complete CGA to max A. pt plans to go home and will have spouse and 2 sons to assist him. caregiver training conducted and family was able to assist pt. pt will also need HHPT. Goals Bed Mobility Goal Independent Transfer Goal Independent,Front Wheeled Walker Gait Goal Independent,Front Wheel Walker Gait Distance 200 Other Goals improve transfers, ambulation using LRAD 300 ft mod I Days to Meet Goals 5 Frequency of Treatment Frequency Of Treatment Twice a Day Treatment Plan Physical Therapy Treatment Plan Bed Mobility Training,Transfer Training,Gait Training, Therapeutic Exercise,Balance Retraining,Post Op Education, Discharge Planning,Hot or Cold Pack,Neuromuscular Re-ed, Coordination Retraining,Manual Therapy Weight Bearing Status Weight Bearing Status Weight Bear as Tolerated Allowed Weight Bearing Amount (enter % RLE WBAT or #) (%) Recommendations To Nursing Amount of Assist Needed 1 Person Assist Discharge Recommendations PT Discharge Recommendations Home with Assistance,Home Health,Acute Rehab Transportation Needs at Discharge Private Vehicle
--- NOTE | 2024-02-02 15:02 | PC.NURSE ---
Activity Pt. up to [facility] this morning with 1 person SBA and FWW, pt. requested gait belt which was applied per request. Pt. demonstrated proper knee precautions and was able to transfer to [facility] without difficulty. Pt. also able to shower with 1 person SBA, denies increased pain.
== END 2024-02-02 15:45 | disposition home or self-care (01) ==
LOC: OR 06:18 → AC 08:30
PROVIDERS: PCP Family Medicine; Referring Provider Family Medicine; Visit Provider Orthopaedic Surgery Adult Reconstructive Orthopaedic Surgery
PROC: 0SRC0JZ Replacement of Right Knee Joint with Synthetic Substitute, Open Approach (ICD-10-PCS; CPT 27447; principal; 2024-02-01 07:45)
DX: M17.11 Unilateral primary osteoarthritis, right knee (principal); M25.761 Osteophyte, right knee
CPT/HCPCS: 27447; 36415; 73560; 85014; 85018; 97116; 97162; 97166; 97530; C1776; J0690; J1100; J1170; J2405; J2704